=== PATIENT | female | born 1940 | race Caucasian/White ===

== ENCOUNTER 2019-07-30 05:12 | Day surgery (SDC) ==
--- NOTE | 2019-07-25 11:00 | EKG Report ---
Test Performed on : 07/25/2019 10:55:38 AM Test Reason : pat Blood Pressure : / mmHG Vent. Rate : 053 BPM Atrial Rate : 053 BPM P-R Int : 172 ms QRS Dur : 144 ms QT Int : 510 ms P-R-T Axes : 034 -24 138 degrees QTc Int : 478 ms Sinus bradycardia. with premature atrial complexes. Left bundle branch block Abnormal ECG No previous ECGs available Confirmed by Kelton MARTINEZ, Keegan Graf ([id number]) on 07/25/2019 12:24:20 PM
[2019-07-25 11:23] LABS: BASO# 0.02 X1000 (0.0-0.2); BASO% 0.2 % (0.0-0.8); EOS# 0.22 X1000 (0.0-0.7); EOS% 2.5 % (0.0-10.0); HEMATOCRIT 36.2 % (37.0-47.0); HEMOGLOBIN 11.8 g/dL (12.0-16.0); LYMPH# 2.22 X1000 (1.2-3.4); LYMPH% 25.7 % (20.5-51.1); MCH 28.2 PG (27-31); MCHC 32.6 g/dL (33-37); MCV 86.6 FL (81-99); MONO# 0.73 X1000 (0.11-0.59); MONO% 8.4 % (1.7-9.3); MPV 10.7 FL (7.4-10.4); NEUT# 5.45 X1000 (1.4-6.5); NEUT% 63.2 % (42.2-75.2); PLT 262 X1000 (130-400); RBC 4.18 XMIL (4.2-5.4); RDW 13.9 % (11.5-14.5); WBC 8.64 X1000 (4.8-10.8)
[2019-07-25 12:02] LABS: AGAP 9; BUN 21 mg/dL (8-22); CALCIUM 9.4 mg/dL (8.8-10.2); CHLORIDE 96 mmol/L (98-107); COSMO 267; CREATININE 0.6 mg/dL (0.5-0.9); ESTIMATED GFR > 60; GLUCOSE 93 mg/dL (70-104); POTASSIUM 4.9 mmol/L (3.5-5.1); SODIUM 132 mmol/L (136-145); TCO2 27 mmol/L (25-35)
--- NOTE | 2019-07-29 15:09 | HISTORY AND PHYSICAL ---
HISTORY: The patient is a 79-year-old female who was referred to me by Dr. Gina Wallis. The patient has advanced stage IV prolapse and is wanting to have surgical correction. We discussed at length, pessary management. We discussed [place] tissue repair, and she and her both were pretty firm about wanting to proceed with sacral colpopexy. The risks and benefits of this were explained at length. She understands, especially in this age group, the increased risk of a longer procedure. She is wishing to proceed. The risks and benefits of supracervical hysterectomy with sacrocolpopexy and midurethral sling were discussed at length. She wishes to proceed. PAST MEDICAL HISTORY: Positive for hypertension. PAST SURGICAL HISTORY: Positive for posterior compartment defect repair, cholecystectomy, right hip replacement, and carpal tunnel surgery. OBSTETRICAL HISTORY: She is noted to be a 4, para 4-0-0-4. ALLERGIES: No known drug allergies. CURRENT MEDICATIONS: Alendronate 70, lisinopril 10, montelukast 10, meloxicam 15, gabapentin 300, estradiol vaginal cream, and p.r.n. medications. FAMILY HISTORY: Positive for ovarian cancer in her mother in the postmenopausal years. SOCIAL HISTORY: Negative for tobacco, ETOH, or drugs. PHYSICAL EXAMINATION: VITAL SIGNS: BMI is 23. HEENT: Normocephalic, atraumatic. PERRLA. EOMI. NECK: No thyromegaly. CV: Regular rate and rhythm without murmur, gallop, rub. PULMONARY: Clear to auscultation and percussion. ABDOMEN: Soft. : Shows point C at -2 in the supine position, with no provocation. NEUROLOGIC: Afocal. EXTREMITIES: Without clubbing, cyanosis, or edema. ASSESSMENT AND PLAN: Patient counseled at length regarding sacrocolpopexy and midurethral sling and supracervical hysterectomy. She is wishing to proceed. Her was present for these discussions as well. cc: Anjum Hurtado MD
[2019-07-30] MEDS ORDERED: LR 1,000 ML ONE ×3 (05:45→10:46)
[2019-07-30] MEDS ORDERED: KEFZOL 1 GM/D5W 2 GM/100 ML IVPB ONE (05:45)
[2019-07-30] MEDS ORDERED: FENTANYL ONE (06:16)
[2019-07-30] MEDS ORDERED: DIPRIVAN 1% ONE (06:16)
[2019-07-30] MEDS ORDERED: SODIUM CHLORIDE 0.9% 10 ML ONE (06:18)
[2019-07-30] MEDS ORDERED: XYLOCAINE-MPF 2% ONE (06:18)
[2019-07-30] MEDS ORDERED: NORCURON ONE (06:18)
[2019-07-30] MEDS ORDERED: ROBINUL ONE ×2 (06:18→08:58)
[2019-07-30] MEDS ORDERED: QUELICIN (DOSE) ONE (06:18)
[2019-07-30] MEDS ORDERED: MARCAINE 0.25% PF ONE (06:29)
[2019-07-30] MEDS ORDERED: D10W 1,000 ML ONE (06:30)
--- NOTE | 2019-07-30 06:54 | H&P REVIEW ---
H&P Update H&P Review: H&P was reviewed and patient was examined, No change has occurred in the patient's condition
[2019-07-30] MEDS ORDERED: ZOFRAN ONE (07:49)
[2019-07-30] MEDS ORDERED: DECADRON ONE (07:49)
[2019-07-30 08:24] LABS: URINE SOURCE CATH
[2019-07-30 08:30] LABS: BILIRUBIN URINE NEGATIVE (NEGATIVE); BLOOD URINE NEGATIVE (NEGATIVE); COLOR YELLOW; GLUCOSE URINE NEGATIVE (NEGATIVE); KETONE URINE NEGATIVE (NEGATIVE); LEUKOCYTES URINE NEGATIVE (NEGATIVE); NITRITE URINE POSITIVE (NEGATIVE); PH URINE 6.5; PROTEIN URINE NEGATIVE (NEGATIVE); TURBIDITY URINE HAZY (CLEAR); UR EPITHELIAL CELLS <10 /HPF (<10); URINE BACTERIA 4+ /HPF; URINE RBC <10 /HPF (<10); URINE WBC <10 /HPF (<10); UROBILINOGEN URINE NORMAL (NORMAL)
[2019-07-30] MEDS ORDERED: APRESOLINE ONE (08:58)
[2019-07-30] MEDS ORDERED: NEOSTIGMINE ONE (08:59)
[2019-07-30] MEDS ORDERED: LASIX ONE (09:09)
[2019-07-30] MEDS ORDERED: TORADOL ONE (09:10)
[2019-07-30] MEDS: DILAUDID ONE ×2 (10:25→10:50)
[2019-07-30] MEDS ORDERED: NORCO-5 ONE (11:19)
[2019-07-30] MEDS ORDERED: NORCO-5 PO PRN (13:18)
[2019-07-30] MEDS: LR 1,000 ML IV SCH ×2 (13:32→22:14)
[2019-07-30] MEDS: PERIDEX MT SCH ×2 (13:58→22:06)
[2019-07-30] MEDS: PRINIVIL PO SCH (13:59)
[2019-07-30] MEDS: COLACE PO SCH ×2 (13:59→22:06)
[2019-07-30] MEDS: NEURONTIN PO SCH ×2 (13:59→22:06)
--- NOTE | 2019-07-30 14:48 | OPERATIVE NOTE ---
PROCEDURE DATE: 07/30/2019 PREOPERATIVE DIAGNOSIS: Pelvic organ prolapse. POSTOPERATIVE DIAGNOSIS: 1. Pelvic organ prolapse. 2. Bladder lesion. PROCEDURE: DA Wali supracervical hysterectomy with bilateral salpingo-oophorectomy, sacral colpopexy, midurethral sling with Obtryx, bladder biopsy. SURGEON: Anjum Hurtado MD ANESTHESIA: General. ESTIMATED BLOOD LOSS: 30 mL. HISTORY: The patient is a 79-year-old female who is referred to me by Dr. Gina Wallis from the [facility], who had been having increasing problems with symptomatic pelvic organ prolapse. She refused pessary management and strongly desired to proceed with definitive surgical intervention. She was counseled at length regarding [place] tissue repair, however, she wished to proceed without hesitation to sacral colpopexy. The risks and benefits have been discussed at length. OPERATIVE FINDINGS: Patient is found have POP-Q stage IV prolapse. 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 Therefore, decision was made to proceed with a biopsy of one of these lesions. She was found to have normal tubes and ovaries bilaterally and a markedly redundant sigmoid colon. OPERATIVE PROCEDURE: Patient is taken to operating room placed supine position. After adequate general anesthesia obtained she is placed [facility] and her abdomen and vagina was prepped and draped in the usual fashion. A supraumbilical incision was made and a 12 mm port and sheath were introduced through this incision into the abdominal cavity. Pelvic contents were visualized, therefore insufflation with CO2 an intraabdominal pressure of 14 was performed. Left- sided ports were placed under direct visualization after infiltration with the same local anesthetic and then the right-sided ports were placed similarly as well. We then went below and placed EEA sizers within the vagina and the anus and Amezquita catheter was placed. The patient was placed in deep Trendelenburg positioning and the robot was docked in the usual fashion. Hot scissors were in the right hand, bipolar PK was in the arm 2 and a single-tooth tenaculum was arm 3. Initial we utilized the tenaculum to elevate the uterus by grasping at the fundus. We then began at the infundibulopelvic ligament on the left-hand side, clamping, cauterizing and cutting through this and continuing in a clamp, cauterize and cut fashion through the round ligament and then down the cardinal ligament. The peritoneal fold was noted to be very high on the uterus so we had to begin our bladder dissection well up into the corpus region. We turned our attention towards the right side in a similar fashion elevated the fallopian tube and ovary away from the infundibulopelvic ligament. We clamped, cauterized and cut this area avoiding the ureter and continued through the round ligament and then down the cardinal ligament to the peritoneal fold. We continued with our peritoneal dissection dropping the bladder well below the cervix. We then clamped, cauterized and cut the uterine vessels on each side and then truncated the corpus of the uterus from its cervical insertion. Corpus of the uterus was placed in the appendiceal bed. We then continued with our vesicovaginal dissection. She had marked redundancy of vaginal mucosa anteriorly and it made this dissection more treacherous because of the folds of the vaginal tissue and the inability to completely lay these folds out with our sizers. After doing this we felt that we had an adequate dissection of approximately 8-10 cm anteriorly. We turned our attention towards the posterior, in a similar fashion we developed the rectovaginal space staying predominantly in the avascular plane. We then went up to the sacral promontory deviating the colon laterally. We elevated the peritoneum over the promontory and we opened this and then dissected down to the anterior longitudinal ligament. No vasculature was encountered during this and we easily were able to identify the ligament without too much difficulty. We continued our peritoneal incision down to our prior pelvic floor incision of the peritoneum so to have ability to re-peritonealize. We then cut our mesh in the typical fashion for both anterior and posterior compartments and introduced it into the pelvic cavity using a 2.0 [place] suture. We started in the vesicovaginal plane by securing the anterior arm of the mesh to the vaginal mucosa. We placed approximately 14 sutures anteriorly trying to keep the vaginal mucosa lying flat against the mesh. All sutures were thrown with initial surgeon's throw and 4 half throws after this. The 2nd posterior arm was then brought around the posterior side and secured with the same knot arrangement at approximately 8 to 10 sites. The 3rd arm was brought up to the sacral promontory and 3 sutures were placed through the mesh into the anterior longitudinal ligament and excess the mesh was then trimmed at the third arm. We then changed out the [place] to a V-Loc suture and starting at the promontory we reperitonealized going down to the bifurcation of the mesh and then doing a pursestring suture around anteriorly and posteriorly. This gave us 95 to 99 percent coverage of the mesh throughout. There was no other abnormalities. Copious amounts irrigation was performed. Our blood loss to this point had been approximately 5-10 mL. We then went below vaginally, we had excellent support in all compartments. We turned our attention towards placement of the sling. Urethra was grasped proximally and distally with Allis clamps and then approximately 8-10 mL of local anesthetic was injected in the periurethral fashion. A sagittal incision was made. Metzenbaum scissors were utilized to dissect up towards the ischial pubic ramus on both the right and left-hand side. Based on the bony landmark of the ramus as well as the insertion of the adductor longus a stab incision was initially made on the left-hand side. Halo device was introduced through this incision through the obturator canal to the tube bending machine operator's finger and then the needle was directed out of the midurethral incision. Mesh was attached to it, was retracted back through the skin. This was performed on the contralateral side in a similar fashion. This time cystoscope was introduced and the bladder was filled approximately 300 mL of D10. Both ureters were effluxing urine. She had a large redundancy of midline vaginal midline vaginal mucosa. However she also had multiple lesions in the bladder consistent with the early stage bladder cancer. We tried to notify Urology, however there were no urologists available in the operating room suite so decision was made to proceed with a biopsy of 1 of these lesions. This was easily done with a flexible cold cup type of biopsy instrument. We grasped 1 of the lesions and retracted back tearing it off and we lost approximately 1 to 2 drops of blood at that site. No other abnormalities were noted other than the multiple lesions that were noted and appropriate pictures for identification was performed. Cystoscope was removed. Radha clamp was placed the midurethral position. The tape was brought out the Radha clamp. The blue tag was excised and the sheaths were easily removed. There was no tension on the urethra, no tension on the mesh. The midurethral incision was closed with a running locking 2.0 Vicryl ligature and excessive mesh was trimmed at the skin bilaterally. Evaluation of the vaginal region noted no abnormalities of suture material in the vaginal mucosa. Sponge count, instrument count, needle counts correct x3. Packs and drains were Amezquita. Patient was taken out of the low adjustable stirrups, awakened and taken to the recovery room with vital signs stable. cc: Anjum Hurtado MD
--- NOTE | 2019-07-30 16:32 | PROGRESS NOTE ---
DATE: 07/30/2019 TIME: Approximately 4 p.m. SUBJECTIVE: Patient is alert and oriented. OBJECTIVE: Afebrile. Vital signs stable. Urine output is slightly blood-tinged. ASSESSMENT AND PLAN: Routine postoperative care. We will remove the Amezquita in the morning and plan on discharge after completion of voiding trial. cc: Anjum Hurtado MD
[2019-07-30] MEDS: TORADOL IV SCH (17:16)
[2019-07-31] MEDS: TORADOL IV SCH ×3 (01:16→11:10)
[2019-07-31] MEDS: LR 1,000 ML IV SCH (07:55)
[2019-07-31] MEDS: PRINIVIL PO SCH (11:10)
[2019-07-31] MEDS: PERIDEX MT SCH (11:10)
[2019-07-31] MEDS: NEURONTIN PO SCH (11:10)
[2019-07-31] MEDS: COLACE PO SCH (11:10)
[2019-07-31 12:00] VITALS: BP 109/88
--- NOTE | 2019-08-01 06:57 | DISCHARGE SUMMARY ---
ADMISSION DATE: 07/30/2019 DISCHARGE DATE: 07/31/2019 PRINCIPAL DIAGNOSIS: Pelvic organ prolapse. PROCEDURE: DA Wali supracervical hysterectomy, abdominal sacrocolpopexy, mid urethral sling with Obtryx, bladder biopsy. HISTORY: The patient is a 79-year-old female who has been followed by Dr. Gina Wallis. Was having problems with symptomatic pelvic organ prolapse. She was admitted for surgical intervention. HOSPITAL COURSE: Patient underwent the above-stated procedure. Blood loss at that time was approximately 30 mL. Postoperative course has been uncomplicated. The patient is being discharged home with instructions for followup in 3 weeks. DISCHARGE MEDICATIONS: Rochelle and Colace. She is currently undergoing voiding trial. She will be discharged home with the above orders and has been instructed to call me if any postoperative complications. cc: Anjum Hurtado MD
== END 2019-07-31 16:05 | disposition home or self-care (01) ==
LOC: OR 05:12 → 4N 05:12 → OR 07-31 16:05
PROVIDERS: ATTEND Obstetrics & Gynecology